=== PATIENT | female | born 1955 | race Caucasian/White ===

== ENCOUNTER 2020-12-13 09:11 | Day surgery (SDC) | payer OTHER ==
--- NOTE | 2020-12-08 13:30 | RAD REPORT ---
EXAM DESCRIPTION: Filomena Diana And Angelique (2 Views)12/08/2020 1:20 pm CLINICAL HISTORY: Preop for knee surgery COMPARISON: 2019 FINDINGS: The lungs appear clear of acute infiltrate. The heart is normal size IMPRESSION: No acute abnormalities displayed
[2020-12-08 13:40] LABS: Absolute Lymphocytes (CBC) 2.3 K/uL (0.7-4.9); Basophils % 1.2 % (0-1.3); Hematocrit 40.8 % (36.0-45.0); Lymphocytes % 33.2 % (15.3-44.8); MPV 7.8 fL (7.6-11.3); RBC Red Blood Cell Count 4.46 M/uL (3.86-4.86)
[2020-12-08 13:45] LABS: Protime INR 0.93
[2020-12-08 13:51] LABS: Potassium 3.7 mmol/L (3.5-5.1)
--- NOTE | 2020-12-12 16:17 | EKG ---
Test Date: 2020-12-08 Test Time: 11:50:41 [employer]ator: ELLE MEASUREMENT RESULTS: Intervals: Rate: 71 MA: 140 QRSD: 88 QT: 378 QTc: 410 [place]: P: 70 MA: 140 QRS: -65 T: 15 INTERPRETIVE STATEMENTS: Normal sinus rhythm Low voltage QRS Left anterior fascicular block Nonspecific ST and T wave abnormality Abnormal ECG No previous ECG available for comparison Electronically Signed On 12-12-20 16:09:21 CDT by Sin Agudelo
[2020-12-13] MEDS ORDERED: Ringers Lactate 1,000 ML IV ONE (09:39)
[2020-12-13] MEDS ORDERED: CEFAZOLIN/SWI 1gm 1 GM/10 ML SYR ONE (09:39)
[2020-12-13] MEDS ORDERED: MIDAZOLAM HCL 2 MG/2 ML INJ ONE (09:54)
[2020-12-13] MEDS ORDERED: FENTANYL CITR 100 MCG/2 ML ONE (09:54)
[2020-12-13] MEDS ORDERED: propofoL 200 MG/20 ML VIAL IV ONE (09:54)
[2020-12-13] MEDS ORDERED: dexAMETHasone 10 MG/ML VIAL ONE (09:55)
[2020-12-13] MEDS ORDERED: LIDOCAINE 2% MPF 5 ML VIAL ONE (09:55)
[2020-12-13] MEDS ORDERED: BUPIVACAINE 0.25% PF 30 ML VIAL ONE (10:32)
[2020-12-13] MEDS ORDERED: ONDANSETRON 4 MG/2 ML VIAL ONE ×2 (11:06→12:47)
--- NOTE | 2020-12-13 11:50 | P.BOP ---
Preoperative diagnosis: right knee medial meniscus tear Postoperative diagnosis: same, right knee lateral meniscus tear Primary procedure: right knee partial medial meniscectomy Secondary procedure: right knee partial lateral meniscectomy [employer]: NONE,NONE Estimated blood loss: 3 cc Specimen: none Findings: see dictation Anesthesia: General Complications: None Implants: none Fluids & blood products: per anesthesia record; TT: 29 mins @ 250 mmHg Transferred to: Recovery Room Condition: Good
[2020-12-13] MEDS ORDERED: KETOROLAC 30 MG/ML INJ ONE (11:56)
[2020-12-13] MEDS ORDERED: MORPHINE 4 MG/ML SYR ONE (12:47)
[2020-12-13] MEDS ORDERED: HYDROCODONE/APAP 5/325 MG TAB PO ONE (13:14)
[2020-12-13] MEDS ORDERED: HYDROCODONE/APAP 5/325 MG TAB ONE (13:33)
[2020-12-13 13:55] VITALS: BP 98/48; TEMP 97; O2SAT 95
--- NOTE | 2020-12-14 18:59 | OP ---
Date of Procedure: 12/13/2020 Surgeon: Harjinder Sahu MD Preoperative Diagnosis: Right knee medial meniscus tear. Postoperative Diagnoses: 1.Right knee medial meniscus tear. 2.Right knee lateral meniscus tear. Procedure Performed: 1.Right knee arthroscopic partial medial meniscectomy. 2.Right knee arthroscopic partial lateral meniscectomy. Anesthesia: General LMA. Fluids: Per Anesthesia record. Estimated Blood Loss: 3 cc. Complications: None. Implants: None. Tourniquet Time: 29 minutes at 250 mmHg. Indication For Procedure: Ms. Blanco is a 65-year-old female, who presented to my clinic with signs, symptoms, and MRI findings consistent with a right knee medial meniscus tear. I discussed with the p atient at length risks and benefits associated with operative and nonoperative treatment. She expres sed understanding and elected to proceed with operative treatment. Description Of Procedure: After informed consent was obtained, the patient was identified in the pre operative holding area. The right lower extremity was marked. The patient was then taken back to [facility] operating room, transferred to the operating table in supine fashion, and placed under general LMA anesthesia. The right lower extremity was then prepped and draped in usual sterile fashion. A time- out was initiated. The correct patient and procedure were confirmed and identified. The patient did receive her preoperative prophylactic antibiotics. The right lower extremity was then exsanguinated and the tourniquet was inflated to 250 mmHg. Standard anteromedial and anterolateral portals were c reated, arthroscope was brought in via the anterolateral portal, and diagnostic arthroscopy was perfo rmed. 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 There were no loose bodies noted within the medial or lateral gutters. The arthroscope was then brought in the medial compartme nt where the patient was noted to have a complex tear of the medial meniscus through the body as well as the posterior horn. A partial medial meniscectomy was performed using meniscal biters and arthro scopic shaver to smooth meniscal borders. There was some chondromalacia noted on the medial femoral condyle, which was grade 3 in nature. The arthroscope was then brought into the intercondylar notch. The patient was noted to have an intact ACL and PCL, which were stable to probe. The arthroscope w as then brought in the lateral compartment where the patient was noted to have a small radial tear of the lateral meniscal body. Meniscal biter and arthroscopic shaver were then used to perform a parti al lateral meniscectomy to smooth meniscal borders. There was noted to be some grade 2 chondromalaci a changes noted of the lateral femoral condyle. The arthroscopic instruments were then removed witho ut complications. The wounds were then irrigated thoroughly with normal saline. The skin was approx imated using a 3-0 Monocryl. Sterile dressings were applied. Tourniquet was let down. The patient was awakened and transferred to PACU in stable condition. Postoperative Plan: She will be weightbearing as tolerated in the right lower extremity. She will f ollow up in clinic in 1 week for wound check. CV/MODL Voice ID: [id number] Report ID: [id number]
== END 2020-12-13 13:45 | disposition home or self-care (01) ==
LOC: OR 09:11
PROVIDERS: ATTEND Orthopaedic Surgery Sports Medicine
PROC: 0SBC4ZZ Excision of Right Knee Joint, Percutaneous Endoscopic Approach (ICD-10-PCS; 2020-12-13)
PROC: 0SBC4ZZ Excision of Right Knee Joint, Percutaneous Endoscopic Approach (ICD-10-PCS; principal; 2020-12-13 10:45)
DX: S83.231A Complex tear of medial meniscus, current injury, right knee, initial encounter (principal); M17.11 Unilateral primary osteoarthritis, right knee
CPT/HCPCS: 93005; 85025; 80048; 36415; 85610; 85730; 71046; 29880; J2704; J2250; J3010; J1100; J0690; J7120; J2405 ×2